=== PATIENT | male | born 1980 | race Caucasian/White ===

== ENCOUNTER 2021-07-06 11:56 | Emergency (ER) | payer SELFPAY ==
--- NOTE | 2021-07-06 12:00 | DI.RAD_ITS ---
Exam(s) XR FEMUR LT EXAM: XR FEMUR LT CLINICAL HISTORY: Foreign Body. TECHNIQUE: 2D digital imaging was performed of the left femur. Six images were obtained. AP and late ral views were obtained. COMPARISON: No exams were available for comparison FINDINGS: BONES: No acute fracture is present. No bony destructive lesion is seen. Visualized portion of knee a nd hip joints are unremarkable. There is a nail embedded in the bone of the anterior distal femoral m etaphysis. SOFT TISSUE: Normal. IMPRESSION: Foreign body (nail) imbedded into the bone of the anterior distal femoral metaphysis. DATA REPOSITORY: RADIATION DOSE DELIVERED:
[2021-07-06 12:06] VITALS: BP 143/87; PULSE 82; RESP 16; TEMP 36.6; O2SAT 99
--- NOTE | 2021-07-06 12:12 | ED.GENADUL_ITS ---
Discharge Plan Disposition Patient Disposition: HOME Condition: Stable Discharge Details Clinical Impression: Foreign body in bone Primary Care Provider: Navneet Lorenz ED Provider: Helen Robledo Home Meds and New Rx's Prescriptions: New clindamycin HCl 150 mg capsule 450 mg PO TID 10 Days Qty: 90 0RF Discharge Instructions Instructions: Puncture Wound (ED) Additional Instructions: Keep clean and dry. Wash daily with soap and water. No soaking. Take the antibiotics as directed. Wear the splint as needed for support for the next 1 to 2 weeks. Please take Tylenol or Ibuprofen with food every 4-6 hours as needed for pain and swelling. Return for any signs of infection including increased redness, red streaks, fever, drainage or chills. Stand Alone Forms: Work Release Referrals: Navneet Lorenz [Primary Care Provider] - 2 weeks Nikko Schroeder MD [[facility] STAFF PHYSICIAN] - Return if symptoms worsen Discharge Data Discharge Date/Time-TO BE ENTERED AT DEPARTURE: 07/06/21 15:51 Medical Decision Making 40-year-old male presents ER with chief complaint of nail gun to the left thigh on accident proximately 40 minutes prior to arrival. He reports that he accidentally he is now gone and discharged a nail into the distal left thigh. He reports increased pain with extension. He is holding his leg in a flexed position. He is unsure when his last tetanus vaccination was. He did not take any medications prior to arrival. Percocet, TDap, and XR ordered. 1248: Ortho MD career professional, Dr. Shoaib Zayas contacted for consult and pictures sent. 1339: Spoke with Dr. Schroeder who recommends local anesthesia and removal with vice pliers. 1415: Area infiltrated with 0.5 % Bupivicaine and Lidocaine with Epi, Patient tolerated well. 1500: Dr. Schroeder at for removal of nail, patient tolerated well. The nail was removed in entirety with 2 metal barbs. Wound care was performed afterwards with saline, Betadine and chlorhexidine. Band-Aid applied. Patient was able to extend his leg without difficulty. Hinged knee brace applied by bar staff discuss strict return instructions and home care. Patient was sent home with prescription for clindamycin. This text was generated using [employer] system, please disregard any oddities of phrase or misspellings. Imaging Data Radiologic Study: Imaging: X-Ray Radiologist's impression: EXAM: XR FEMUR LT CLINICAL HISTORY: Foreign Body. TECHNIQUE: 2D digital imaging was performed of the left femur. Six images were obtained. AP and lateral views were obtained. COMPARISON: No exams were available for comparison FINDINGS: BONES: No acute fracture is present. No bony destructive lesion is seen. Visualized portion of knee and hip joints are unremarkable. There is a nail embedded in the bone of the anterior distal femoral metaphysis. SOFT TISSUE: Normal. IMPRESSION: Foreign body (nail) imbedded into the bone of the anterior distal femoral metaphysis. HPI General Mode of arrival: wheelchair . Date/Time Provider Initiated Documentation: 07/06/21 12:09 . Limitations to Documentation: no limitations . Information obtained by: patient, RN notes reviewed and old records reviewed . HPI Narrative: 40-year-old male presents ER with chief complaint of nail gun to the left thigh on accident proximately 40 minutes prior to arrival. He reports that he accidentally he is now gone and discharged a nail into the distal left thigh. He reports increased pain with extension. He is holding his leg in a flexed position. He is unsure when his last tetanus vaccination was. He did not take any medications prior to arrival. Related Data Home Medications Medication Instructions Recorded Confirmed clindamycin HCl 150 mg capsule 450 mg PO TID 10 days #90 caps 07/06/21 Previous Rx's Medication Instructions Recorded clindamycin HCl 150 mg capsule 450 mg PO TID 10 days #90 caps 07/06/21 Allergies Allergy/AdvReac Type Severity Reaction Status Date / Time amoxicillin [Amoxicillin] Allergy Intermediate Skin Rash Unverified 07/06/21 12:13 Review of Systems Musculoskeletal Musculoskeletal: Reports as per HPI Integumentary/Breasts Skin/Breast: Reports wounds PFSH All Active Problems (Updated 07/06/21 @ 15:16 by Helen Robledo) Foreign body in bone (Acute) Social History Smoking/Tobacco Use Status: Current every day Tobacco Type: cigarettes Smoking risk assessment performed?: Yes Drug use: Occasionally Substance use type: marijuana Exam Extrem Left lower extremity: hip/thigh Details: abnormal to inspection, foreign body and penetrating wound Upper/lower leg/hip images: 1. Nail Head embedded into thigh
[2021-07-06] MEDS: oxyCODONE 5 mg/Acetaminophen 325 mg TAB 1 TAB PO (12:27)
== END 2021-07-06 15:51 | disposition home or self-care (01) ==
PROVIDERS: Emergency Provider Registered Nurse Emergency; PCP Naturopath
DX: S71.142A Puncture wound with foreign body, left thigh, initial encounter (principal); W29.4XXA Contact with nail gun, initial encounter
CPT/HCPCS: 29505; 73552; 90471; 99284; 99283